=== PATIENT | male | born 1950 | race Caucasian/White ===

== ENCOUNTER 2016-11-13 14:13 | Inpatient (IN) | payer MEDICARE ==
[2016-11-13 15:30] LABS: ARTERIAL BLOOD GAS PCO2 38.8 mmHg (35.0-45.0); ARTERIAL BLOOD GAS PO2 107.1 mmHg (80.0-90.0); ARTERIAL BLOOD GAS pH 7.449 (7.350-7.450)
[2016-11-13 15:31] LABS: ARTERIAL BLOOD GAS BASE EXCESS 2.3 mmol/L (-2.0-2.0); ARTERIAL BLOOD GAS HCO3 26.3 mmol/L (22.0-28.0)
[2016-11-13 15:32] LABS: ABSOLUTE NEUTROPHIL COUNT 6.1 K/mm3 (1.8-7.7); EOS % 0.1 % (0.9-2.9); HEMATOCRIT 40.7 % (32.0-52.0); HEMOGLOBIN 13.2 gm/l (14.0-18.0); IMM NEUT # 0.1 K/mm3 (0-0.2); LYMPH # 0.4 (1.0-4.8); LYMPH % 6.1 % (15-45); MEAN CELL VOLUME 98.3 fl (80.0-94.0); MEAN CORPUSCULAR HEMOGLOBIN 31.9 pg (27.0-31.0); MEAN CORPUSCULAR HGB CONC 32.4 g/dl (33.0-37.0); MEAN PLATELET VOLUME 11.2 fl (7.4-10.4); MONO # 0.3 (0.0-0.8); MONO % 4.5 % (4-12); NEUT % 88.3 % (43-75); PLATELET COUNT 87 K/mm3 (130-400); RED CELL DISTRIBUTION WIDTH 13.2 % (11.5-14.5)
[2016-11-13 15:44] LABS: ALB/GLOB RATIO 0.9 (>1.0); ALBUMIN 2.8 gm/dL (3.5-5.7); CALCIUM 8.3 mg/dL (8.6-10.3)
[2016-11-13 15:47] LABS: TROPONIN I 0.08 ng/ml (0.0-0.06)
[2016-11-13 15:51] LABS: CKMB ISOENZYME 3.3 ng/ml (0.6-6.3)
--- NOTE | 2016-11-13 16:00 | RAD ---
CHEST-AP BEDSIDE HISTORY: Dyspnea with cough. COMPARISONS: 02/11/2010. FINDINGS: A single view of the chest was performed demonstrating an indwelling left jugular centimeters catheter with its tip projecting within the expected location of the superior vena cava. The heart size is borderline prominent. There is no focal infiltrate, effusion or pneumothorax is seen. The hilar and mediastinal structures appear to be intact. IMPRESSION: 1. An indwelling left jugular central venous catheter with its tip projecting within the expected location of the superior vena cava. No pneumothorax is visualized. 2. Borderline cardiac silhouette size.
[2016-11-13] MEDS ORDERED: FUROSEMIDE 40 MG/4 ML VIAL ONE (16:01)
[2016-11-13 17:44] VITALS: BMI 26.4
[2016-11-13] MEDS ORDERED: SODIUM CHLORIDE 0.9% FLUSH 20 ML ONE (19:51)
[2016-11-13] MEDS ORDERED: BLISTEX LIPSTICK 1 EACH TP PRN (20:04)
[2016-11-13] MEDS ORDERED: SODIUM CHLORIDE 0.9% 100 ML IV PRN (20:04)
[2016-11-13] MEDS ORDERED: NICOTINE POLACRILEX 2 MG LOZENGE PO PRN (20:04)
[2016-11-13] MEDS ORDERED: ACETAMINOPHEN 325 MG TABLET PO PRN (20:04)
[2016-11-13] MEDS ORDERED: MAGNESIUM HYDROXIDE 30 ML UDCUP PO PRN (20:04)
[2016-11-13] MEDS ORDERED: BISACODYL 5 MG TABLET.EC PO PRN (20:04)
[2016-11-13] MEDS ORDERED: BISACODYL 10 MG SUP PR PRN (20:04)
[2016-11-13] MEDS ORDERED: MENTHOL/CETYLPYRD 1 EACH LOZENGE PO PRN (20:04)
[2016-11-13] MEDS ORDERED: LORAZEPAM 0.5 MG TABLET PO PRN (20:13)
[2016-11-13] MEDS ORDERED: WARFARIN PER PHARMACY 1 EACH DOSE PO SCH (20:15)
--- NOTE | 2016-11-13 20:50 | CT ---
Name: GEORGETTE TAYLOR Exam: CT of the chest without contrast Comparison: None Clinical History: Dyspnea and cough Procedure: Helical CT using multidetector technique was applied to the chest without contrast. Automated dose reduction technique was used to minimize patient radiation dose. Findings: CT chest with and without contrast: Heart is enlarged. Coronary artery calcification is present. There is no suspicious pericardial effusion. Aorta is atherosclerotic and normal caliber. There is a normal 3 great vessel arrangement. There is a left approach jugular central venous catheter with its tip in the innominate vein. Limited views the thyroid gland are within normal limits. Right greater left gynecomastia is present. There is no suspicious axillary adenopathy. Several subcentimeter lymph nodes are noted within the mediastinum. Hilar structures are unremarkable. Large airways are clear. Diffuse vascular congestion is present. There is mild patchy density within the right upper and right lower lobe and this could represent edema or infiltrate. There is a small right pleural effusion. There is no pneumothorax, nodule or dominant mass. The gallbladder is contracted. The stomach is moderately distended with food. There is a granuloma within the liver. There is trace ascites in the upper abdomen. Regional skeleton is unremarkable for the patient's age. Impression: 1. Cardiomegaly and diffuse vascular congestion 2. Mild increased density within the right upper and right lower lobe. Differential considerations include edema and infiltrate 3. Very small right effusion 4. Left jugular central venous catheter has its tip within the innominate vein 5. Contracted gallbladder 6. Trace free fluid in the upper abdomen 7. Gynecomastia Note:The above report was uploaded to [facility]s electronic medical records system at 2046 hours.
[2016-11-13] MEDS: INSULIN ASPART (DOSE) 100 UNITS/1 ML SUB-Q PRN (20:56)
[2016-11-13] MEDS: DOCUSATE SODIUM 100 MG CAPSULE PO SCH (21:41)
[2016-11-13] MEDS: CARVEDILOL 3.125 MG TABLET PO SCH (21:41)
[2016-11-13] MEDS: NICOTINE 14 MG PATCH 1 EACH TD SCH (21:42)
[2016-11-13] MEDS: LACTULOSE 20 G/30 ML UDCUP PO SCH (21:45)
[2016-11-13] MEDS: PREDNISONE 20 MG TABLET PO SCH (21:45)
[2016-11-13] MEDS: INSULIN GLARGINE (DOSE) 100 UNITS/ML UNIT SUB-Q SCH (21:49)
[2016-11-13] MEDS: METHADONE 5 MG TABLET PO SCH (21:58)
[2016-11-13 22:34] LABS: A1C-GLYCOHEMOGLOBIN 0.8 g/dl; HEMOGLOBIN-GLYCO 18.3 g/dl
[2016-11-13 23:14] LABS: INR 2.15; PROTHROMBIN TIME 23.5 SECONDS (9.3-11.4)
[2016-11-13] MEDS: ALBUTEROL/IPRATROPIUM 2.5/0.5 MG 3 ML/EACH DOSE NEB PRN (23:20)
[2016-11-13] MEDS ORDERED: FUROSEMIDE 20 MG/2 ML VIAL IV ONE (23:21)
[2016-11-14] MEDS ORDERED: LORAZEPAM 2 MG/ML 1ML SDV IV PRN (00:02)
[2016-11-14] MEDS: LORAZEPAM 1 MG TABLET PO PRN ×3 (01:01→21:36)
[2016-11-14 06:26] LABS: ABSOLUTE NEUTROPHIL COUNT 6.1 K/mm3 (1.8-7.7); BASO % 0.1 % (0.2-1.0); EOS % 0.1 % (0.9-2.9); HEMOGLOBIN 13.6 gm/l (14.0-18.0); IMM NEUT # 0.1 K/mm3 (0-0.2); IMM NEUT% 0.7 % (0-1); LYMPH # 0.6 (1.0-4.8); LYMPH % 8.8 % (15-45); MEAN CELL VOLUME 97.4 fl (80.0-94.0); MEAN CORPUSCULAR HEMOGLOBIN 31.6 pg (27.0-31.0); MEAN CORPUSCULAR HGB CONC 32.4 g/dl (33.0-37.0); MEAN PLATELET VOLUME 11.7 fl (7.4-10.4); MONO # 0.3 (0.0-0.8); MONO % 4.8 % (4-12); NEUT % 85.5 % (43-75); PLATELET COUNT 92 K/mm3 (130-400); RED CELL DISTRIBUTION WIDTH 12.9 % (11.5-14.5)
[2016-11-14 06:40] LABS: ALB/GLOB RATIO 0.9 (>1.0); CALCIUM 8.7 mg/dL (8.6-10.3)
[2016-11-14 06:56] LABS: INR 2.21; PROTHROMBIN TIME 24.2 SECONDS (9.3-11.4)
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
[2016-11-14] MEDS: CARVEDILOL 3.125 MG TABLET PO SCH ×2 (08:55→21:08)
[2016-11-14] MEDS: METHADONE 5 MG TABLET PO SCH ×2 (08:56→21:08)
[2016-11-14] MEDS: LOSARTAN POTASSIUM 50 MG TABLET PO SCH (08:57)
[2016-11-14] MEDS: ASPIRIN (ENTERIC COATED) 81 MG TABLET.EC PO SCH (08:58)
[2016-11-14] MEDS: PREDNISONE 20 MG TABLET PO SCH (08:59)
[2016-11-14] MEDS: FUROSEMIDE 20 MG/2 ML VIAL IV SCH ×2 (08:59→21:07)
[2016-11-14] MEDS: LACTULOSE 20 G/30 ML UDCUP PO SCH (09:23)
[2016-11-14] MEDS: DOCUSATE SODIUM 100 MG CAPSULE PO SCH ×2 (09:23→21:07)
--- NOTE | 2016-11-14 10:56 | PDOC43 ---
- Subjective Chief Complaint: CHF Patient resting. He reports breathing doing better than yesterday. No GI c/o. Reports feeling better overall today. - Objective Vital Signs Temperature 97.7 F 11/14/16 08:00 Pulse Rate 97 11/14/16 08:00 Respiratory Rate 16 11/14/16 08:00 Blood Pressure 118/78 11/14/16 08:00 O2 Saturation by Pulse Oximetry 99 11/14/16 08:00 Oxygen Delivery Method Nasal Cannula Oxygen Flow Rate 2 Vital Signs Last 12 Hours Temp Pulse Resp BP Pulse Ox 11/14/16 08:00 97.7 F 97 16 118/78 99 11/14/16 04:07 97.5 F 79 21 97/54 97 11/14/16 02:09 92 19 105/58 99 11/14/16 01:26 18 11/14/16 00:03 97.7 F 101 20 152/63 100 11/13/16 23:20 100 19 98 Intake and Output 11/12/16 11/13/16 11/14/16 23:59 23:59 23:59 Intake Total 480 Output Total 2675 650 Balance -2675 -170 General: Other (sleeping, but awakens easily, responds. Soft spoken.) HEENT: Atraumatic Lungs: Other (generally good air movement bilat. Some crackles posterior bases.) Cardiovascular: Regular Rate and Rhythm Abdomen: Soft, Normal Bowel Sounds, Non-Distended Extremities: Edema (trace edema bilat LE. Mottling of feet and ankles appears improved today. Color sl better today.) Neurological: Normal Speech Psych/Mental Status: Other (soft spoken, appears at ease. Lying nearly flat.) Laboratory 11/14/16 05:30 11/14/16 05:30 11/14/16 11/13/16 11/13/16 05:30 22:05 20:45 RBC 4.31 L MCV 97.4 H MCH 31.6 H MCHC 32.4 L PT 24.2 H 23.5 H POC Capillary Glucose 225 H Hemoglobin A1c 6.3 H Total Bilirubin 1.3 H AST 102 H ALT 60 H Troponin I 0.10 H B-Natriuretic Peptide Albumin 3.0 L Albumin/Globulin Ratio 0.9 L 11/13/16 19:55 RBC MCV MCH MCHC PT POC Capillary Glucose Hemoglobin A1c Total Bilirubin AST ALT Troponin I B-Natriuretic Peptide > 1250 H Albumin Albumin/Globulin Ratio Laboratory Tests 11/13/16 11/14/16 22:05 05:30 INR 2.15 2.21 Hemoglobin A1c 6.3 H Current Medications: Current meds reviewed in EMR. Active Medications Acetaminophen (Tylenol) 650 mg PO Q6H PRN PRN Reason: Pain or Temperature > 100.5 F Albuterol/Ipratropium (Duoneb) 3 ml NEB Q6H PRN PRN Reason: Wheezing Last Admin: 11/13/16 23:20 Dose: 3 ml Aspirin (Ecotrin) 81 mg PO DAILY [facility] Last Admin: 11/14/16 08:58 Dose: 81 mg Benzocaine/Menthol (Cepacol) 1 each PO PRN PRN PRN Reason: Sore Throat Bisacodyl (Dulcolax) 10 mg AR DAILY PRN PRN Reason: Constipation Bisacodyl (Dulcolax) 5 mg PO DAILY PRN PRN Reason: Constipation Carvedilol (Coreg) 3.125 mg PO BID [facility] Last Admin: 11/14/16 08:55 Dose: 3.125 mg Docusate Sodium (Colace) 100 mg PO BID [facility] Last Admin: 11/14/16 09:23 Dose: Not Given Furosemide (Lasix) 20 mg IV BID [facility] Last Admin: 11/14/16 08:59 Dose: 20 mg Sodium Chloride (Sodium Chloride 0.9%) 100 mls @ 25 mls/hr IV PRN PRN PRN Reason: Flush Insulin Aspart (Novolog (Dose)) 0 units SUB-Q WM/BEDTIME PRN; Protocol PRN Reason: Blood Sugar > Last Admin: 11/13/16 20:56 Dose: 2 units Insulin Glargine (Lantus (Dose)) 15 units SUB-Q 2100 [facility] Last Admin: 11/13/16 21:49 Dose: 15 units Lactulose (Enulose) 10 g PO DAILY [facility] Last Admin: 11/14/16 09:23 Dose: Not Given Lorazepam (Ativan) 1 mg PO Q6H PRN PRN Reason: Anxiety Last Admin: 11/14/16 01:01 Dose: 1 mg Losartan Potassium (Cozaar) 25 mg PO DAILY [facility] Last Admin: 11/14/16 08:57 Dose: 25 mg Magnesium Hydroxide (Milk Of Magnesia) 30 ml PO DAILY PRN PRN Reason: Constipation Methadone HCl (Methadone) 15 mg PO BID [facility] Last Admin: 11/14/16 08:56 Dose: 15 mg Miscellaneous (Coumadin Per Pharmacy) 1 each PO PERPHARMACY [facility] Nicotine (Nicoderm Cq) 1 each TD Q24H [facility] Last Admin: 11/13/16 21:42 Dose: 1 each Nicotine Polacrilex (Commit Lozenge) 2 mg PO Q1H PRN PRN Reason: Withdrawal Symptoms Petrolatum/Paraffin/Mineral Oil (Blistex) 1 each TP PRN PRN PRN Reason: Dry and/or chapped lips Prednisone (Prednisone) 20 mg PO QAM [facility] Last Admin: 11/14/16 08:59 Dose: 20 mg Sodium Chloride (Normal Saline 10ml Flush) 10 - 50 ml IV PRN PRN PRN Reason: IV Flush Sodium Chloride (Normal Saline 10ml Flush) 10 ml IV Q8HR [facility] Last Admin: 11/14/16 08:59 Dose: 10 ml - Problems: Assessment/Plan (1) CHF with cardiomyopathy Status: Acute Assessment/Plan: Elevated BNP, suspect due to chronic ischemic systolic cardiomyopathy with valvular dz from endocarditis Pt reports he had at one point been established with [facility] and considering valve replacement. Await echo results, plan review with [facility] (2) Hepatitis C Qualifiers: Hepatic coma status: without hepatic coma Status: Chronic Assessment/Plan: chronic, with suspected cirrhosis Ammonia level not elevated. Some elevation of LFTs. Reports no alcohol in 3 years. (3) COPD (chronic obstructive pulmonary disease) Qualifiers: COPD type: unspecified COPD Qualifier Code: (J44.9) Chronic obstructive pulmonary disease, unspecified Status: Chronic Assessment/Plan: Continue nebs. Plan to quit prednisone. (4) Endocarditis due to methicillin susceptible Staphylococcus aureus (MSSA) Status: Resolved Assessment/Plan: History of MSSA; ESR and CRP normal; blood cultures negative so far. (5) Smoking Status: Chronic Assessment/Plan: On nicotine replacement (6) Elevated glucose level Status: Acute Assessment/Plan: Attributed to steroids A1c 6.3, glucose 153 today. Continue on Lantus, SS, CBG. (7) Methadone dependence Status: Chronic Assessment/Plan: Continue current dose. (8) Left atrial thrombus Status: Chronic Assessment/Plan: INR 2.21 today, on warfarin. Consider review with [facility] cardiology about goal INR with this and hx valvular dz. VTE Prophylaxis: on warfarin. Disposition: To be determined. Awaiting echo result.
[2016-11-14] MEDS: INSULIN ASPART (DOSE) 100 UNITS/1 ML SUB-Q PRN (13:45)
[2016-11-14] MEDS ORDERED: WARFARIN SODIUM 1 MG TABLET PO ONE (16:00)
[2016-11-14] MEDS: ALBUTEROL/IPRATROPIUM 2.5/0.5 MG 3 ML/EACH DOSE NEB PRN ×2 (18:01→21:25)
[2016-11-14] MEDS: INSULIN GLARGINE (DOSE) 100 UNITS/ML UNIT SUB-Q SCH (21:06)
[2016-11-14] MEDS: NICOTINE 14 MG PATCH 1 EACH TD SCH (21:07)
[2016-11-15 04:52] LABS: ABSOLUTE NEUTROPHIL COUNT 9.1 K/mm3 (1.8-7.7); BASO % 0.2 % (0.2-1.0); EOS # 0.1 (0.0-0.5); EOS % 0.4 % (0.9-2.9); HEMATOCRIT 43.2 % (32.0-52.0); HEMOGLOBIN 14.4 gm/l (14.0-18.0); IMM NEUT # 0.2 K/mm3 (0-0.2); IMM NEUT% 1.5 % (0-1); LYMPH # 2.3 (1.0-4.8); LYMPH % 18.6 % (15-45); MEAN CELL VOLUME 96.9 fl (80.0-94.0); MEAN CORPUSCULAR HEMOGLOBIN 32.3 pg (27.0-31.0); MEAN CORPUSCULAR HGB CONC 33.3 g/dl (33.0-37.0); MONO # 0.7 (0.0-0.8); MONO % 5.9 % (4-12); NEUT % 73.4 % (43-75); PLATELET COUNT 135 K/mm3 (130-400)
[2016-11-15 05:10] LABS: ALB/GLOB RATIO 0.9 (>1.0); ALBUMIN 3.1 gm/dL (3.5-5.7); CALCIUM 8.9 mg/dL (8.6-10.3)
[2016-11-15 05:15] LABS: INR 1.83; PROTHROMBIN TIME 19.8 SECONDS (9.3-11.4)
[2016-11-15] MEDS: LORAZEPAM 1 MG TABLET PO PRN ×3 (05:59→19:12)
[2016-11-15] MEDS: CARVEDILOL 3.125 MG TABLET PO SCH ×2 (10:01→20:36)
[2016-11-15] MEDS: LACTULOSE 20 G/30 ML UDCUP PO SCH (10:01)
[2016-11-15] MEDS: FUROSEMIDE 20 MG/2 ML VIAL IV SCH ×2 (10:02→16:11)
[2016-11-15] MEDS: DOCUSATE SODIUM 100 MG CAPSULE PO SCH ×2 (10:03→20:34)
[2016-11-15] MEDS: METHADONE 5 MG TABLET PO SCH ×2 (10:03→20:35)
[2016-11-15] MEDS: LOSARTAN POTASSIUM 50 MG TABLET PO SCH (10:05)
[2016-11-15] MEDS: ASPIRIN (ENTERIC COATED) 81 MG TABLET.EC PO SCH (10:05)
--- NOTE | 2016-11-15 11:31 | PDOC43 ---
- Subjective Chief Complaint: Dyspnea Sleepy but wakes to voice. Reports ongoing dyspnea, no chest pain. - Objective Vital Signs Temperature 97.8 F 11/15/16 07:37 Pulse Rate 80 11/15/16 10:53 Respiratory Rate 20 11/15/16 08:27 Blood Pressure 107/52 11/15/16 09:30 O2 Saturation by Pulse Oximetry 83 11/15/16 10:53 Oxygen Delivery Method Room Air Oxygen Flow Rate 0 Intake and Output 11/14/16 11/15/16 11/16/16 06:59 06:59 06:59 Intake Total 720 240 Output Total 3074 7275 Balance -3075 -2104 240 General: Cooperative, No Acute Distress HEENT: Mucous membr. moist/pink Lungs: Other (crackles at bases bilateral) Cardiovascular: Regular Rate and Rhythm (distant heart sounds) Abdomen: Soft, Hypoactive Bowel Sounds, No Tenderness, No Masses Extremities: Edema (1+ bilateral), Pulses Diminished but Palpable, Other (feet cool to touch) Neurological: Normal Speech Psych/Mental Status: Normal Mood Laboratory 11/15/16 04:40 11/15/16 04:40 11/15/16 11/14/16 11/14/16 04:40 21:02 17:10 RBC 4.46 L MCV 96.9 H MCH 32.3 H PT 19.8 H BUN 34 H POC Capillary Glucose 187 H 197 H Total Bilirubin 1.2 H AST 96 H ALT 64 H Alkaline Phosphatase 107 H Troponin I 0.07 H Albumin 3.1 L Albumin/Globulin Ratio 0.9 L % Immature Granulocyt 1.5 H 11/14/16 12:19 RBC MCV MCH PT BUN POC Capillary Glucose 222 H Total Bilirubin AST ALT Alkaline Phosphatase Troponin I Albumin Albumin/Globulin Ratio % Immature Granulocyt Current Medications: Current meds reviewed in EMR. 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 ECHO demonstrates advancing disease with EF reduced from 35% last year to 15-20 % now. Continue diuresis as tolerated. Pt reports he had at one point been established with [facility] and considering valve replacement, plan review of current ECHO with [facility] (2) Elevated glucose level Status: Acute Assessment/Plan: Attributed to steroids A1c 6.3, Continue on Lantus, SS, CBG. (3) Left atrial thrombus Status: Chronic Assessment/Plan: History of LA thrombus on chronic anticoagulation with warfarin. No evidence of persistent thrombus on TTE. (4) COPD (chronic obstructive pulmonary disease) Qualifiers: COPD type: unspecified COPD Qualifier Code: (J44.9) Chronic obstructive pulmonary disease, unspecified Status: Chronic Assessment/Plan: Schedule nebs, off prednisone since admit. (5) Hepatitis C Qualifiers: Viral hepatitis chronicity: chronic Hepatic coma status: without hepatic coma Qualifier Code: (B18.2) Chronic viral hepatitis C Status: Chronic Assessment/Plan: chronic, with suspected cirrhosis Ammonia level not elevated. Some elevation of LFTs. Reports no alcohol in 3 years. (6) Methadone dependence Status: Chronic Assessment/Plan: Continue current dose. (7) Endocarditis due to methicillin susceptible Staphylococcus aureus (MSSA) Status: Resolved Assessment/Plan: History of MSSA; ESR and CRP normal; blood cultures negative so far. (8) RBBB Status: Chronic Assessment/Plan: stable (9) Pleural effusion Status: Acute Assessment/Plan: Due to acute on chronic CHF (10) Nicotine dependence Qualifiers: Nicotine product type: cigarettes Substance use status: uncomplicated Qualifier Code: (F17.210) Nicotine dependence, cigarettes, uncomplicated Status: Chronic Assessment/Plan: Continue nicotine replacement (11) Elevated troponin Status: Acute Assessment/Plan: mild, no chest pain, due to stress of CHF, not ACS. VTE Prophylaxis: on warfarin. Disposition: To be determined.
[2016-11-15] MEDS: ALBUTEROL/IPRATROPIUM 2.5/0.5 MG 3 ML/EACH DOSE NEB SCH ×3 (11:33→20:22)
[2016-11-15] MEDS ORDERED: WARFARIN SODIUM 2 MG TABLET PO ONE (16:00)
[2016-11-15] MEDS: INSULIN GLARGINE (DOSE) 100 UNITS/ML UNIT SUB-Q SCH (21:41)
[2016-11-15] MEDS: NICOTINE 14 MG PATCH 1 EACH TD SCH (21:42)
[2016-11-15] MEDS: ALBUTEROL NEB 2.5 MG/3 ML VIAL.NEB NEB PRN (23:34)
[2016-11-16 04:42] LABS: ABSOLUTE NEUTROPHIL COUNT 5.5 K/mm3 (1.8-7.7); BASO % 0.2 % (0.2-1.0); EOS # 0.3 (0.0-0.5); EOS % 3.4 % (0.9-2.9); HEMATOCRIT 40.4 % (32.0-52.0); HEMOGLOBIN 13.3 gm/l (14.0-18.0); IMM NEUT # 0.1 K/mm3 (0-0.2); IMM NEUT% 0.7 % (0-1); LYMPH # 2.4 (1.0-4.8); LYMPH % 27.6 % (15-45); MEAN CELL VOLUME 96.9 fl (80.0-94.0); MEAN CORPUSCULAR HEMOGLOBIN 31.9 pg (27.0-31.0); MEAN CORPUSCULAR HGB CONC 32.9 g/dl (33.0-37.0); MEAN PLATELET VOLUME 10.9 fl (7.4-10.4); MONO # 0.5 (0.0-0.8); NEUT % 62.1 % (43-75); PLATELET COUNT 104 K/mm3 (130-400); RED CELL DISTRIBUTION WIDTH 13.1 % (11.5-14.5)
[2016-11-16 05:02] LABS: INR 2.06; PROTHROMBIN TIME 22.5 SECONDS (9.3-11.4)
[2016-11-16 05:04] LABS: CALCIUM 8.6 mg/dL (8.6-10.3)
[2016-11-16] MEDS: ALBUTEROL NEB 2.5 MG/3 ML VIAL.NEB NEB PRN (05:26)
[2016-11-16] MEDS: LORAZEPAM 1 MG TABLET PO PRN ×2 (06:55→21:27)
[2016-11-16] MEDS: FUROSEMIDE 20 MG/2 ML VIAL IV SCH ×2 (07:34→09:13)
[2016-11-16] MEDS: LACTULOSE 20 G/30 ML UDCUP PO SCH (09:01)
[2016-11-16] MEDS: ASPIRIN (ENTERIC COATED) 81 MG TABLET.EC PO SCH (09:01)
[2016-11-16] MEDS: METHADONE 5 MG TABLET PO SCH ×2 (09:01→21:27)
[2016-11-16] MEDS: DOCUSATE SODIUM 100 MG CAPSULE PO SCH ×2 (09:01→21:27)
[2016-11-16] MEDS: CARVEDILOL 3.125 MG TABLET PO SCH ×2 (09:02→21:41)
[2016-11-16] MEDS: LOSARTAN POTASSIUM 50 MG TABLET PO SCH (09:02)
[2016-11-16] MEDS: ALBUTEROL/IPRATROPIUM 2.5/0.5 MG 3 ML/EACH DOSE NEB SCH ×4 (09:06→19:43)
--- NOTE | 2016-11-16 12:21 | PDOC43 ---
- Subjective Chief Complaint: Dyspnea Sleepy but rouses. Reports dyspnea and occasional chest pain. Was anxious with dyspnea this a.m. but improved with furosemide. - Objective Vital Signs Temperature 97.9 F 11/16/16 07:00 Pulse Rate 93 11/16/16 11:00 Respiratory Rate 28 11/16/16 11:00 Blood Pressure 119/62 11/16/16 11:00 O2 Saturation by Pulse Oximetry 97 11/16/16 11:00 Oxygen Delivery Method Room Air Oxygen Flow Rate 0 Intake and Output 11/15/16 11/16/16 11/17/16 06:59 06:59 06:59 Intake Total 720 1490 300 Output Total 2825 1425 1100 Balance -2105 65 -800 General: Alert, Oriented x3, Cooperative, No Acute Distress HEENT: Mucous membr. moist/pink Lungs: Other (crackles at bases R > L) Cardiovascular: Regular Rate and Rhythm Abdomen: Soft, Normal Bowel Sounds, No Tenderness, No Masses Extremities: Edema (1+ on right, trace on left) Skin: Normal Color Neurological: Normal Speech Psych/Mental Status: Normal Mood Laboratory 11/16/16 04:25 11/16/16 04:25 11/16/16 11/16/16 11/15/16 11:58 04:25 21:33 RBC 4.17 L MCV 96.9 H MCH 31.9 H MCHC 32.9 L PT 22.5 H Anion Gap 6 L BUN 38 H POC Capillary Glucose 102 H 143 H Troponin I 0.07 H 11/15/16 15:39 RBC MCV MCH MCHC PT Anion Gap BUN POC Capillary Glucose 110 H Troponin I Current Medications: Current meds reviewed in EMR. 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 ECHO demonstrates advancing disease with EF reduced from 35% last year to 15-20 % now. Continue diuresis as tolerated. Pt reports he had at one point been established with [facility] and considering valve replacement, plan review of current ECHO with [facility] (2) Elevated glucose level Status: Acute Assessment/Plan: Attributed to steroids A1c 6.3, Continue on Lantus, SS, CBG. (3) Left atrial thrombus Status: Chronic Assessment/Plan: History of LA thrombus on chronic anticoagulation with warfarin. No evidence of persistent thrombus on TTE. (4) COPD (chronic obstructive pulmonary disease) Qualifiers: COPD type: unspecified COPD Qualifier Code: (J44.9) Chronic obstructive pulmonary disease, unspecified Status: Chronic Assessment/Plan: Schedule nebs, off prednisone since admit. (5) Hepatitis C Qualifiers: Viral hepatitis chronicity: chronic Hepatic coma status: without hepatic coma Qualifier Code: (B18.2) Chronic viral hepatitis C Status: Chronic Assessment/Plan: chronic, with suspected cirrhosis Ammonia level not elevated. Some elevation of LFTs. Reports no alcohol in 3 years. (6) Methadone dependence Status: Chronic Assessment/Plan: Continue current dose. (7) RBBB Status: Chronic Assessment/Plan: stable (8) Pleural effusion Status: Acute Assessment/Plan: Due to acute on chronic CHF (9) Nicotine dependence Qualifiers: Nicotine product type: cigarettes Substance use status: uncomplicated Qualifier Code: (F17.210) Nicotine dependence, cigarettes, uncomplicated Status: Chronic Assessment/Plan: Continue nicotine replacement (10) Elevated troponin Status: Acute Assessment/Plan: mild, no chest pain, due to stress of CHF, not ACS. VTE Prophylaxis: on warfarin. Disposition: To be determined.
[2016-11-16] MEDS: POTASSIUM CHLORIDE 20 MEQ TAB.PRT.SR PO SCH ×2 (12:38→21:27)
[2016-11-16] MEDS ORDERED: FUROSEMIDE 20 MG TABLET PO SCH (16:00)
[2016-11-16] MEDS ORDERED: WARFARIN SODIUM 2 MG TABLET PO ONE (16:00)
[2016-11-16] MEDS: FUROSEMIDE 20 MG TABLET PO SCH (16:26)
[2016-11-16] MEDS: NICOTINE 14 MG PATCH 1 EACH TD SCH (21:28)
[2016-11-16] MEDS: INSULIN GLARGINE (DOSE) 100 UNITS/ML UNIT SUB-Q SCH (21:39)
[2016-11-17 06:42] LABS: INR 2.57; PROTHROMBIN TIME 28.4 SECONDS (9.3-11.4)
[2016-11-17] MEDS: ALBUTEROL/IPRATROPIUM 2.5/0.5 MG 3 ML/EACH DOSE NEB SCH ×4 (08:07→20:58)
[2016-11-17] MEDS: LACTULOSE 20 G/30 ML UDCUP PO SCH (09:34)
[2016-11-17] MEDS: FUROSEMIDE 20 MG TABLET PO SCH ×2 (09:35→16:27)
[2016-11-17] MEDS: LOSARTAN POTASSIUM 50 MG TABLET PO SCH (09:35)
[2016-11-17] MEDS: DOCUSATE SODIUM 100 MG CAPSULE PO SCH ×2 (09:36→21:06)
[2016-11-17] MEDS: POTASSIUM CHLORIDE 20 MEQ TAB.PRT.SR PO SCH ×2 (09:36→21:06)
[2016-11-17] MEDS: ASPIRIN (ENTERIC COATED) 81 MG TABLET.EC PO SCH (09:36)
[2016-11-17] MEDS: METHADONE 5 MG TABLET PO SCH ×2 (09:37→21:06)
[2016-11-17] MEDS: CARVEDILOL 3.125 MG TABLET PO SCH ×2 (12:54→21:06)
--- NOTE | 2016-11-17 13:07 | PDOC43 ---
- Subjective Chief Complaint: Dyspnea Anxious today but not really dyspnic. Has intermittent feelings of chest pain and "skipped beats" Dyspnea with minimal exertion. - Objective Vital Signs Temperature 98.5 F 11/17/16 11:00 Pulse Rate 85 11/17/16 11:00 Respiratory Rate 16 11/17/16 11:00 Blood Pressure 121/57 11/17/16 11:00 O2 Saturation by Pulse Oximetry 91 11/17/16 11:00 Oxygen Delivery Method Room Air Oxygen Flow Rate 0 Intake and Output 11/16/16 11/17/16 11/18/16 06:59 06:59 06:59 Intake Total 1490 860 Output Total 1425 3350 125 Balance 65 -2490 -125 General: Alert, Oriented x3, Cooperative, No Acute Distress HEENT: Mucous membr. moist/pink Lungs: Other (crackles at bases bilateral) Cardiovascular: Regular Rate and Rhythm Abdomen: Soft, Normal Bowel Sounds, No Tenderness, No Masses Extremities: Pulses Diminished but Palpable, No Edema (resolved) Skin: Rash Neurological: Normal Speech Psych/Mental Status: Anxious Laboratory 11/16/16 04:25 11/16/16 04:25 11/17/16 11/16/16 11/16/16 05:50 21:38 17:48 PT 28.4 H POC Capillary Glucose 133 H 139 H Current Medications: Current meds reviewed in EMR. 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 ECHO demonstrates advancing disease with EF reduced from 35% last year to 15-20 % now. Continue diuresis as tolerated. Patient spontaniously volunteered that he is approaching end of life, "I don't have much longer to live". He is interested in being comfortable and considering hospice or [facility]. (2) Elevated glucose level Status: Acute Assessment/Plan: Attributed to steroids A1c 6.3, BG lower, decrease lantus. (3) Left atrial thrombus Status: Chronic Assessment/Plan: History of LA thrombus on chronic anticoagulation with warfarin. No evidence of persistent thrombus on TTE. (4) COPD (chronic obstructive pulmonary disease) Qualifiers: COPD type: unspecified COPD Qualifier Code: (J44.9) Chronic obstructive pulmonary disease, unspecified Status: Chronic Assessment/Plan: Schedule nebs, off prednisone since admit. (5) Hepatitis C Qualifiers: Viral hepatitis chronicity: chronic Hepatic coma status: without hepatic coma Qualifier Code: (B18.2) Chronic viral hepatitis C Status: Chronic Assessment/Plan: chronic, with suspected cirrhosis Ammonia level not elevated. Some elevation of LFTs. Reports no alcohol in 3 years. (6) Methadone dependence Status: Chronic Assessment/Plan: Continue current dose. (7) RBBB Status: Chronic Assessment/Plan: stable (8) Pleural effusion Status: Acute Assessment/Plan: Due to acute on chronic CHF (9) Nicotine dependence Qualifiers: Nicotine product type: cigarettes Substance use status: uncomplicated Qualifier Code: (F17.210) Nicotine dependence, cigarettes, uncomplicated Status: Chronic Assessment/Plan: Continue nicotine replacement (10) Elevated troponin Status: Acute Assessment/Plan: mild, due to stress of CHF, not ACS. VTE Prophylaxis: on warfarin. Disposition: Considering home with hospice for NYHA class IV heart failure.
[2016-11-17] MEDS: LORAZEPAM 1 MG TABLET PO PRN ×2 (13:28→23:18)
[2016-11-17] MEDS ORDERED: WARFARIN SODIUM 2 MG TABLET PO SCH (16:30)
[2016-11-17] MEDS ORDERED: INSULIN GLARGINE (DOSE) 100 UNITS/ML UNIT SUB-Q SCH (21:00)
[2016-11-17] MEDS: NICOTINE 14 MG PATCH 1 EACH TD SCH (21:06)
[2016-11-17] MEDS: INSULIN ASPART (DOSE) 100 UNITS/1 ML SUB-Q PRN (21:07)
[2016-11-18 05:27] LABS: HEMATOCRIT 43.9 % (32.0-52.0); HEMOGLOBIN 14.5 gm/l (14.0-18.0); MEAN CELL VOLUME 96.7 fl (80.0-94.0); MEAN CORPUSCULAR HEMOGLOBIN 31.9 pg (27.0-31.0); RED CELL DISTRIBUTION WIDTH 12.9 % (11.5-14.5)
[2016-11-18 06:09] LABS: INR 2.79
[2016-11-18 08:41] LABS: CALCIUM 8.9 mg/dL (8.6-10.3)
[2016-11-18] MEDS: ASPIRIN (ENTERIC COATED) 81 MG TABLET.EC PO SCH (09:09)
[2016-11-18] MEDS: LACTULOSE 20 G/30 ML UDCUP PO SCH (09:09)
[2016-11-18] MEDS: POTASSIUM CHLORIDE 20 MEQ TAB.PRT.SR PO SCH (09:10)
[2016-11-18] MEDS: METHADONE 5 MG TABLET PO SCH (09:10)
[2016-11-18] MEDS: FUROSEMIDE 20 MG TABLET PO SCH ×2 (09:10→16:29)
[2016-11-18] MEDS: DOCUSATE SODIUM 100 MG CAPSULE PO SCH (09:11)
[2016-11-18] MEDS: LOSARTAN POTASSIUM 50 MG TABLET PO SCH (09:11)
[2016-11-18] MEDS: CARVEDILOL 3.125 MG TABLET PO SCH (09:11)
--- NOTE | 2016-11-18 10:42 | PDOC43 ---
- Subjective Chief Complaint: Dyspnea Patient reports some ambulation (bathroom), and ate breakfast well. Pt reports being concerned about pain. No special change in pain situation. No GI c/o. No urinary complaints. Would be willing to consider hospice. - Objective Vital Signs Temperature 97.6 F 11/18/16 07:56 Pulse Rate 85 11/18/16 08:00 Respiratory Rate 20 11/18/16 08:00 Blood Pressure 96/46 11/18/16 07:56 O2 Saturation by Pulse Oximetry 84 11/18/16 08:00 Oxygen Delivery Method Nasal Cannula Oxygen Flow Rate 0 Vital Signs Last 12 Hours Temp Pulse Resp BP Pulse Ox 11/18/16 08:00 85 20 84 11/18/16 07:56 97.6 F 77 20 96/46 93 11/18/16 03:51 97.7 F 70 20 94/39 94 11/18/16 02:00 20 11/17/16 23:37 97.7 F 72 22 99/71 98 Intake and Output 11/16/16 11/17/16 11/18/16 23:59 23:59 23:59 Intake Total 1150 610 200 Output Total 3300 2325 1000 Balance -2150 -1715 -800 General: Alert, Cooperative, Mild Distress Lungs: Clear to Auscultation Bilaterally, Other (decreased air movement bilat) Cardiovascular: Regular Rate and Rhythm, Murmur Abdomen: Soft, Normal Bowel Sounds, No Tenderness, No Rebounding, No Involuntary Guarding Extremities: Normal Cap Refill, No Edema, No Tenderness Neurological: Normal Speech Psych/Mental Status: Other (sl unusual affect, concerned about pain and medications. Makes reference to killing self with pain meds.) Laboratory 11/18/16 05:10 11/18/16 05:10 11/18/16 11/17/16 05:10 20:56 RBC 4.54 L MCV 96.7 H MCH 31.9 H PT 31.0 H Anion Gap 6 L BUN 29 H POC Capillary Glucose 201 H Current Medications: Current meds reviewed in EMR. Active Medications Acetaminophen (Tylenol) 650 mg PO Q6H PRN PRN Reason: Pain or Temperature > 100.5 F Albuterol Sulfate (Ventolin Inhalation Solution (Dose)) 2.5 mg NEB Q2H PRN PRN Reason: Wheezing Last Admin: 11/16/16 05:26 Dose: 2.5 mg Albuterol/Ipratropium (Duoneb) 3 ml NEB 08,12,16,20 [facility] Last Admin: 11/17/16 20:58 Dose: 3 ml Aspirin (Ecotrin) 81 mg PO DAILY [facility] Last Admin: 11/18/16 09:09 Dose: 81 mg Benzocaine/Menthol (Cepacol) 1 each PO PRN PRN PRN Reason: Sore Throat Bisacodyl (Dulcolax) 10 mg MN DAILY PRN PRN Reason: Constipation Bisacodyl (Dulcolax) 5 mg PO DAILY PRN PRN Reason: Constipation Carvedilol (Coreg) 3.125 mg PO BID [facility] Last Admin: 11/18/16 09:11 Dose: 3.125 mg Docusate Sodium (Colace) 100 mg PO BID [facility] Last Admin: 11/18/16 09:11 Dose: 100 mg Furosemide (Lasix) 40 mg PO [id number] [facility] Last Admin: 11/18/16 09:10 Dose: 40 mg Sodium Chloride (Sodium Chloride 0.9%) 100 mls @ 25 mls/hr IV PRN PRN PRN Reason: Flush Insulin Aspart (Novolog (Dose)) 0 units SUB-Q WM/BEDTIME PRN; Protocol PRN Reason: Blood Sugar > Last Admin: 11/17/16 21:07 Dose: 2 units Insulin Glargine (Lantus (Dose)) 10 units SUB-Q 2100 [facility] Last Admin: 11/17/16 21:07 Dose: 10 units Lactulose (Enulose) 10 g PO DAILY [facility] Last Admin: 11/18/16 09:09 Dose: 10 g Lorazepam (Ativan) 1 mg PO Q6H PRN PRN Reason: Anxiety Last Admin: 11/17/16 23:18 Dose: 1 mg Losartan Potassium (Cozaar) 25 mg PO DAILY [facility] Last Admin: 11/18/16 09:11 Dose: Not Given Magnesium Hydroxide (Milk Of Magnesia) 30 ml PO DAILY PRN PRN Reason: Constipation Methadone HCl (Methadone) 15 mg PO BID [facility] Last Admin: 11/18/16 09:10 Dose: 15 mg Miscellaneous (Coumadin Per Pharmacy) 1 each PO PERPHARMACY [facility] Nicotine (Nicoderm Cq) 1 each TD Q24H [facility] Last Admin: 11/17/16 21:06 Dose: 1 each Nicotine Polacrilex (Commit Lozenge) 2 mg PO Q1H PRN PRN Reason: Withdrawal Symptoms Last Admin: 11/17/16 13:28 Dose: 2 mg Petrolatum/Paraffin/Mineral Oil (Blistex) 1 each TP PRN PRN PRN Reason: Dry and/or chapped lips Potassium Chloride (K-Dur) 20 meq PO BID [facility] Last Admin: 11/18/16 09:10 Dose: 20 meq Sodium Chloride (Normal Saline 10ml Flush) 10 - 50 ml IV PRN PRN PRN Reason: IV Flush Last Admin: 11/17/16 05:56 Dose: 50 ml Sodium Chloride (Normal Saline 10ml Flush) 10 ml IV Q8HR [facility] Last Admin: 11/18/16 09:09 Dose: 10 ml - Problems: Assessment/Plan (1) CHF with cardiomyopathy Status: Acute Assessment/Plan: Acute on chronic combined CHF with 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 ECHO demonstrates advancing disease with EF reduced from 35% last year to 15-20 % now. Continuing meds Patient spontaneously volunteered that he is approaching end of life, "I don't have much longer to live". He is interested in being comfortable and considering hospice; [facility] planning to see this afternoon . (2) Hepatitis C Qualifiers: Viral hepatitis chronicity: chronic Hepatic coma status: without hepatic coma Qualifier Code: (B18.2) Chronic viral hepatitis C Status: Chronic Assessment/Plan: chronic, with suspected cirrhosis Ammonia level not elevated. Some elevation of LFTs. Reports no alcohol in 3 years. (3) COPD (chronic obstructive pulmonary disease) Qualifiers: COPD type: unspecified COPD Qualifier Code: (J44.9) Chronic obstructive pulmonary disease, unspecified Status: Chronic Assessment/Plan: Schedule nebs, off prednisone since admit. (4) Endocarditis due to methicillin susceptible Staphylococcus aureus (MSSA) Status: Resolved Assessment/Plan: History of MSSA - approx 3 yr ago; On this hospitalization, ESR and CRP normal; blood cultures negative x3. (5) Smoking Status: Chronic Assessment/Plan: On nicotine replacement. (6) Elevated glucose level Status: Acute Assessment/Plan: Attributed to steroids; mostly better in 70s, with one excursion to 201. A1c 6.3, (7) Methadone dependence Status: Chronic Assessment/Plan: Continue current dose, hospice should be able to help with this. Patient still seems very focused on pain and being able to avoid pain (8) Left atrial thrombus Status: Chronic Assessment/Plan: History of LA thrombus on chronic anticoagulation with warfarin. No evidence of persistent thrombus on TTE. INR 2.79 today. VTE Prophylaxis: on warfarin. Disposition: Considering home with hospice for NYHA class IV heart failure. Anticipate revision of PO meds to optimize cardiac status.
[2016-11-18] MEDS: ALBUTEROL/IPRATROPIUM 2.5/0.5 MG 3 ML/EACH DOSE NEB SCH ×3 (11:45→19:26)
[2016-11-18] MEDS ORDERED: WARFARIN SODIUM 2 MG TABLET PO ONE (16:01)
[2016-11-18] MEDS ORDERED: OXYCODONE/ACETAMINOPHEN 5/325 MG TABLET PO PRN (20:46)
[2016-11-18 20:49] VITALS: BP 111/55
[2016-11-19] MEDS: DOCUSATE SODIUM 100 MG CAPSULE PO SCH (02:36)
[2016-11-19] MEDS: NICOTINE 14 MG PATCH 1 EACH TD SCH (03:44)
[2016-11-19] MEDS: POTASSIUM CHLORIDE 20 MEQ TAB.PRT.SR PO SCH (03:44)
[2016-11-19] MEDS: CARVEDILOL 3.125 MG TABLET PO SCH (03:44)
[2016-11-19] MEDS: METHADONE 5 MG TABLET PO SCH (03:44)
--- NOTE | 2016-11-19 13:10 | DS ---
Rachid Thomas [id number] DATE OF ADMISSION: 11/13/2016 LEAVING AGAINST MEDICAL ADVICE: 11/18/2016 DISCHARGE DIAGNOSES: 1. Patient leaving against medical advice. 2. Severe cardiomyopathy with ejection fraction of 15% to 20%. 3. History of infectious endocarditis considered cleared, blood cultures negative, sed rate and C-reactive protein normal. 4. History of hepatis C with normal ammonia levels. 5. Chronic obstructive pulmonary disease. 6. Narcotic dependence and abuse. 7. Smoking. 8. History of left atrial thrombus on anticoagulation. 9. Methamphetamine abuse. REASON FOR ADMISSION: The patient is a 66-year-old male who was hospitalized in [facility] and intubated for a period of time prior to admission here at [place]. He left [place] against medical advice. He went home and experienced worsening dyspnea, so came to [place]. In the emergency department here he was noted to have a white blood cell count of 6.9, hemoglobin 13.2, INR 2.15, lactate 1.8, sodium 136, potassium 4.2, chloride 102, BUN 21, creatinine 0.8, glucose 252, calcium 8.3, AST 95, ALT 53, CK-MB 3.3, troponin 0.08, BNP greater than 1250, albumin 2.8, globulin 3.2, TSH 0.68. He had a chest x-ray which showed indwelling left jugular central venous catheter with tip projecting within the expected location of the superior vena cava. No pneumothorax identified. Borderline cardiac silhouette size. Chest CT performed on admission showing cardiomegaly, diffuse vascular congestion, mild increased density in the right upper and right lower lobe, edema versus infiltrate, small right effusion, left jugular central venous catheter, contracted gallbladder, trace free fluid in the upper abdomen, and gynecomastia. He was referred to the hospitalist service for treatment of congestive heart failure. He underwent diuresis with IV Lasix and had repeated blood cultures along with checking for inflammatory markers. His low dose Coreg, Losartan, and aspirin were continued and his methadone was continued although, interestingly he had been obtaining this methadone through illicit means rather than at a clinic. He received a sliding scale for his elevated glucose due to the prednisone. His echocardiogram was performed showing severe reduction in ejection fraction at 15% to 20%, diastolic function abnormal with elevated filling pressures, severe left atrial enlargement, mild mitral valve regurgitation, moderate aortic valve regurgitation present, mild pulmonic insufficiency, moderate tricuspid valve regurgitation, and right ventricular systolic pressure estimated at 55 mmHg with moderate pulmonary hypertension. This was reviewed with the patient and patient had at one point been established at [facility] and considering follow up with them although, on further discussion he wished to go with hospice. He underwent hospice consultation on 11/18/2016 and was accepted to [facility]. The patient made a number of concerning comments regarding obtaining additional narcotics. The evening of 11/18/2016 when he was anticipated to be discharge 11/19/2016 patient requested Oxycontin for his back pain despite the methadone being continued. He was offered Percocet 5/325 two by mouth every 6 hours as needed, but indicated he would insist on Oxycontin and indicated that he would leave against medical advice. He was anticipated to be discharged to home the following day and so he is anticipated to be leaving shortly against medical advice. DISCHARGE MEDICATIONS: Will anticipated to be managed through [facility]. He had been on: 1. Albuterol 1 puff every 4 hours as needed. 2. Bisacodyl 10 mg by mouth daily as needed. 3. Atarax 10 mg by mouth every 8 hours as needed. 4. Methadone 30 mg by mouth daily. 5. Omeprazole 20 mg by mouth daily. 6. Warfarin 3 mg daily. I would be anticipated that medications added would include: 1. Carvedilol. 2. Furosemide. 3. Potassium. FOLLOW UP: Follow up with his regular physician, Dr. Raul Rodriguez on 11/21/2016 at 1:15 p.m. and to follow up with [facility] [place]. Pain medicines will be managed by Dr. Rodriguez although, is understood that he had violated a contract with him before along with the hospice organization. Vital signs at this time, temperature 98.1, pulse 81, blood pressure 111/55, he had been on 95% saturation on 3 liters, respirations 22. His blood cultures had been done x3 and were all negative. LABORATORY: At the time of discharge, white count 10.7, hemoglobin 14.5, INR 2.79. Chemistry profile blood sugar 147 with a sodium of 136, potassium 4.0, creatinine 0.9, calcium 8.9. His previous testing had minimally elevated troponin up to 0.1, but was 0.06 on November 17 and his ammonia was 30. JOB: [id number] CC: Luis Alberto GALAVIZ [facility] Dr. Rodriguez. [facility] Cardiology
== END 2016-11-18 22:00 | disposition left against medical advice (07) | DRG 292 ==
LOC: ED 14:13 → ICU 16:43 → MS 11-17 18:01
PROVIDERS: ADMIT Family Medicine; ATTEND Family Medicine
DX: I50.33 Acute on chronic diastolic (congestive) heart failure (principal); I42.9 Cardiomyopathy, unspecified; I38 Endocarditis, valve unspecified; B19.20 Unspecified viral hepatitis C without hepatic coma; J44.9 Chronic obstructive pulmonary disease, unspecified; F17.210 Nicotine dependence, cigarettes, uncomplicated; F15.10 Other stimulant abuse, uncomplicated; I51.7 Cardiomegaly; A49.01 Methicillin susceptible Staphylococcus aureus infection, unspecified site; Z53.21 Procedure and treatment not carried out due to patient leaving prior to being seen by health care provider